=== PATIENT | female | born 1980 | race Caucasian/White ===

== ENCOUNTER → 2023-03-22 09:44 | Outpatient (REF) | payer OTHER, SELFPAY | LOC: PNTC 09:44 | PROVIDERS: ATTENDING PHYSICIAN Obstetrics & Gynecology | DX: O09.529 Supervision of elderly multigravida, unspecified trimester (principal); O99.210 Obesity complicating pregnancy, unspecified trimester; O10.919 Unspecified pre-existing hypertension complicating pregnancy, unspecified trimester; O34.211 Maternal care for low transverse scar from previous cesarean delivery; O43.219 Placenta accreta, unspecified trimester | CPT/HCPCS: 76811; 93976 ==

== ENCOUNTER → 2023-04-16 13:14 | Outpatient (REF) | payer OTHER, SELFPAY | LOC: PNTC 13:14 | PROVIDERS: ATTENDING PHYSICIAN Obstetrics & Gynecology | DX: O99.210 Obesity complicating pregnancy, unspecified trimester (principal); O10.019 Pre-existing essential hypertension complicating pregnancy, unspecified trimester; O43.219 Placenta accreta, unspecified trimester; O34.219 Maternal care for unspecified type scar from previous cesarean delivery | CPT/HCPCS: 76816; 93976 ==

== ENCOUNTER → 2023-05-16 13:26 | Outpatient (REF) | payer OTHER, SELFPAY | LOC: PNTC 13:26 | PROVIDERS: ATTENDING PHYSICIAN Obstetrics & Gynecology | DX: O99.210 Obesity complicating pregnancy, unspecified trimester (principal); O09.529 Supervision of elderly multigravida, unspecified trimester; O13.9 Gestational [pregnancy-induced] hypertension without significant proteinuria, unspecified trimester; O34.219 Maternal care for unspecified type scar from previous cesarean delivery | CPT/HCPCS: 76816; 93976 ==

== ENCOUNTER → 2023-06-11 08:52 | Outpatient (REF) | payer OTHER, SELFPAY | LOC: PNTC 08:52 | PROVIDERS: ATTENDING PHYSICIAN Obstetrics & Gynecology | DX: O99.210 Obesity complicating pregnancy, unspecified trimester (principal); O09.529 Supervision of elderly multigravida, unspecified trimester; O34.219 Maternal care for unspecified type scar from previous cesarean delivery | CPT/HCPCS: 59025; 76816 ==

== ENCOUNTER → 2023-06-18 08:44 | Outpatient (REF) | payer OTHER, SELFPAY | LOC: PNTC 08:44 | PROVIDERS: ATTENDING PHYSICIAN Obstetrics & Gynecology | DX: O99.210 Obesity complicating pregnancy, unspecified trimester (principal); O09.529 Supervision of elderly multigravida, unspecified trimester; O13.9 Gestational [pregnancy-induced] hypertension without significant proteinuria, unspecified trimester; O34.219 Maternal care for unspecified type scar from previous cesarean delivery | CPT/HCPCS: 59025; 76815 ==

== ENCOUNTER → 2023-06-25 08:50 | Outpatient (REF) | payer OTHER, SELFPAY | LOC: PNTC 08:50 | PROVIDERS: ATTENDING PHYSICIAN Obstetrics & Gynecology | DX: O99.210 Obesity complicating pregnancy, unspecified trimester (principal); O09.529 Supervision of elderly multigravida, unspecified trimester; O34.219 Maternal care for unspecified type scar from previous cesarean delivery; O10.019 Pre-existing essential hypertension complicating pregnancy, unspecified trimester | CPT/HCPCS: 59025; 76815 ==

== ENCOUNTER → 2023-07-02 08:57 | Outpatient (REF) | payer OTHER, SELFPAY | LOC: PNTC 08:57 | PROVIDERS: ATTENDING PHYSICIAN Obstetrics & Gynecology | DX: O99.210 Obesity complicating pregnancy, unspecified trimester (principal); O09.529 Supervision of elderly multigravida, unspecified trimester; O13.9 Gestational [pregnancy-induced] hypertension without significant proteinuria, unspecified trimester; O34.219 Maternal care for unspecified type scar from previous cesarean delivery | CPT/HCPCS: 59025; 76815 ==

== ENCOUNTER → 2023-07-09 08:45 | Outpatient (REF) | payer OTHER, SELFPAY | LOC: PNTC 08:45 | PROVIDERS: ATTENDING PHYSICIAN Obstetrics & Gynecology | DX: O99.210 Obesity complicating pregnancy, unspecified trimester (principal); O09.529 Supervision of elderly multigravida, unspecified trimester; O13.9 Gestational [pregnancy-induced] hypertension without significant proteinuria, unspecified trimester; O34.219 Maternal care for unspecified type scar from previous cesarean delivery | CPT/HCPCS: 59025; 76816 ==

== ENCOUNTER → 2023-07-17 15:57 | Outpatient (REF) | payer OTHER, SELFPAY | LOC: PNTC 15:57 | PROVIDERS: ATTENDING PHYSICIAN Obstetrics & Gynecology | DX: O99.210 Obesity complicating pregnancy, unspecified trimester (principal); O09.529 Supervision of elderly multigravida, unspecified trimester; O13.9 Gestational [pregnancy-induced] hypertension without significant proteinuria, unspecified trimester; O34.219 Maternal care for unspecified type scar from previous cesarean delivery | CPT/HCPCS: 59025; 76815 ==

== ENCOUNTER → 2023-07-23 08:57 | Outpatient (REF) | payer OTHER, SELFPAY | LOC: PNTC 08:57 | PROVIDERS: ATTENDING PHYSICIAN Obstetrics & Gynecology | DX: O99.210 Obesity complicating pregnancy, unspecified trimester (principal); O09.519 Supervision of elderly primigravida, unspecified trimester; O34.219 Maternal care for unspecified type scar from previous cesarean delivery; I10 Essential (primary) hypertension | CPT/HCPCS: 59025; 76815 ==

== ENCOUNTER → 2023-07-30 08:56 | Outpatient (REF) | payer OTHER, SELFPAY | LOC: PNTC 08:56 | PROVIDERS: ATTENDING PHYSICIAN Obstetrics & Gynecology | DX: O99.210 Obesity complicating pregnancy, unspecified trimester (principal); O09.521 Supervision of elderly multigravida, first trimester; O34.219 Maternal care for unspecified type scar from previous cesarean delivery; O10.019 Pre-existing essential hypertension complicating pregnancy, unspecified trimester | CPT/HCPCS: 59025; 76815 ==

== ENCOUNTER 2023-08-01 08:01 | Inpatient (IN) | payer OTHER, SELFPAY ==
[2023-08-01] MEDS: LR 1000 IV ×2 (08:00→09:24)
[2023-08-01 08:06] VITALS: BMI 48.3
[2023-08-01 08:38] LABS: Hematocrit 38.5 % (37.0-47.0); Hemoglobin 12.8 g/dL (12.0-16.0); Mean Corp Hgb Conc. 33.2 g/dL (33.0-37.0); Mean Corpuscular Hgb 27.6 pg (27.0-31.0); Mean Corpuscular Volume 83.2 fL (81.0-99.0); Mean Platelet Volume 10.1 fL (7.4-10.4); Platelet Count 285 10^3/uL (130-400); Red Blood Cell Count 4.63 10^6/uL (4.20-5.40); Red Cell Dist. Width 15.8 % (11.5-14.5); White Blood Cell Count 15.5 10^3/uL (4.8-10.8)
[2023-08-01] MEDS: TYLENOL 1000 MG PO (09:24)
[2023-08-01] MEDS: BICITRA 30 ML PO (09:48)
[2023-08-01] MEDS: ANCEF 15 MG IV (09:56)
[2023-08-01] MEDS: ZOFRAN 4 MG IV ×2 (13:06→20:27)
[2023-08-01] MEDS: BENADRYL 25 MG IV (13:07)
[2023-08-01] MEDS: PITOCIN 30 UNITS/NSS 500 ML IV (15:16)
[2023-08-01] MEDS: TORADOL 15 MG IV ×2 (17:08→23:00)
[2023-08-01] MEDS: TRANDATE 100 MG PO (20:34)
[2023-08-02 04:33] LABS: Hematocrit 30.8 % (37.0-47.0); Hemoglobin 10.2 g/dL (12.0-16.0); Mean Corp Hgb Conc. 33.1 g/dL (33.0-37.0); Mean Corpuscular Hgb 27.6 pg (27.0-31.0); Mean Corpuscular Volume 83.2 fL (81.0-99.0); Mean Platelet Volume 10.3 fL (7.4-10.4); Platelet Count 253 10^3/uL (130-400); Red Cell Dist. Width 15.9 % (11.5-14.5); White Blood Cell Count 20.6 10^3/uL (4.8-10.8)
[2023-08-02] MEDS: TORADOL 15 MG IV ×2 (05:10→11:06)
[2023-08-02] MEDS: TRANDATE 100 MG PO ×2 (08:20→20:19)
[2023-08-02] MEDS: PRENATAL PLUS 1 TABLET PO (08:21)
[2023-08-02] MEDS: SENOKOT-S 1 TABLET PO (08:21)
--- NOTE | 2023-08-02 08:22 | W.PN.ANS.POP ---
Anesthesia Post Operative
- Anesthesia Post Op Note
Vital Signs Stable-See Nursing Note: Yes
Airway Patent: Yes
Adequate Pain Control: Yes
Change in Mental Status: No
Current Postoperative Nausea & Vomiting: No
Anesthesia Complications: No
General Anesthetic Recall: No
Unplanned Admission: No
Post Op Hydration Adequate: Yes
[2023-08-02] MEDS: TYLENOL 650 MG PO (20:27)
[2023-08-02] MEDS: MOTRIN 600 MG PO (20:27)
[2023-08-03] MEDS: MOTRIN 600 MG PO ×3 (04:35→16:34)
[2023-08-03] MEDS: TYLENOL 650 MG PO ×3 (04:35→16:34)
[2023-08-03] MEDS: TRANDATE 100 MG PO ×2 (08:59→20:06)
[2023-08-03] MEDS: PRENATAL PLUS 1 TABLET PO (08:59)
[2023-08-03] MEDS: SENOKOT-S 1 TABLET PO (08:59)
[2023-08-03 14:39] LABS: Syphilis/T. pallidum Ab Reflex Negative (Negative)
[2023-08-04] MEDS: MOTRIN 600 MG PO ×3 (00:26→15:27)
[2023-08-04] MEDS: TYLENOL 650 MG PO ×3 (00:26→15:28)
[2023-08-04] MEDS: TRANDATE 100 MG PO (07:54)
[2023-08-04] MEDS: PRENATAL PLUS 1 TABLET PO (07:54)
--- NOTE | 2023-08-04 14:06 | W.DS.TRANS ---
DC Summary - Clinical Research Assistant
-
Discharge Instructions:
Discharge Diagnosis/Procedures delivered by elective repeat csection
Diet Regular
Activity No strenuous activity
Driving Restrictions No driving for 2 weeks
Bathing Restrictions OK to Shower
Instructions:
Stand-Alone Forms:
Changes to Home Medications: No
Discharge Medications:
DC Medications w/original date entered in [employer]
cetirizine 10 mg tablet (Zyrtec) 10 mg PO DAILY PRN allergies 11/28/21
labetalol 100 mg tablet 100 mg PO BID 11/28/21
prenat.vits,jessica,jbj-bhva-ohiiw 1 tab PO DAILY 11/28/21
acetaminophen 325 mg tablet 650 mg (2 x 325 mg) PO Q4HPRN PRN mild pain #0 tabs 08/02/23
ibuprofen 600 mg tablet 600 mg PO Q6HPRN PRN cramps #0 tabs 08/02/23
labetalol 100 mg tablet 100 mg PO BID #0 tabs 08/02/23
Home Medication Changes
Pending Results: No
Total time spent discharging patient (in min): 20
== END 2023-08-04 17:40 | disposition home or self-care (01) | DRG 787 ==
LOC: LDRP 08:01
PROVIDERS: ADMITTING PHYSICIAN Obstetrics & Gynecology; FAMILY PHYSICIAN Internal Medicine
PROC: 10D00Z1 Extraction of Products of Conception, Low, Open Approach (ICD-10-PCS; 2023-08-01)
DX: O34.211 Maternal care for low transverse scar from previous cesarean delivery (principal); O10.92 Unspecified pre-existing hypertension complicating childbirth; N85.8 Other specified noninflammatory disorders of uterus; O69.81X0 Labor and delivery complicated by cord around neck, without compression, not applicable or unspecified; O99.214 Obesity complicating childbirth; E66.01 Morbid (severe) obesity due to excess calories; Z3A.39 39 weeks gestation of pregnancy; Z37.0 Single live birth
CPT/HCPCS: 36415; 85027; 86780; 86850; 86900; 86901; C1765

== ENCOUNTER → 2023-09-09 19:54 | Day surgery (SDC) | payer OTHER, SELFPAY ==
[2023-09-09] VITALS (13 sets, daily range): BP systolic 118–158; BP diastolic 69–83
--- NOTE | 2023-09-09 14:06 | ED.GENMED ---
History of Present Illness
General
Chief Complaint: Post Operative Problem(s)
Source: patient
Exam Limitations: none
Time Seen by Provider: 09/09/23 14:04
Nursing documentation reviewed up to this point in time: agreed with
History of Present Illness
History of Present Illness:
43-year-old female hx of HTN, 6 weeks states after the first week , her vaginal bleeding stopped and then the following week it started up again like irregular period until yesterday when the bleeding became worse and she noted
more clotting and cramps, today the clots are bigger and she called her FILLER IN Dr. Garcia who told her to come here and she will meet her here. Patient denies feeling lightheaded, weak or dizzy. Denies chest pain or SOB. She denies abdominal pain
at this time. She states she took a Motrin 200 mg prior to arrival.
Past History
Past History
ED Past Medical History: HTN
ED Past Surgical History: (6 weeks ago, also 1 prior )
Social History
Tobacco: Non-smoker
Alcohol: None
Personal:
Living: with family
Employment: Employed
Review of Systems
Review of Systems
Allergies reviewed?: Yes
All Other Systems: ROS reviewed and negative except as documented in HPI and ROS
Constitutional: Denies fever or chills
Cardiac: Denies chest pain
ABD/GI: Reports abdominal pain (cramps at times); Denies nausea, vomiting or diarrhea
: Reports bleeding (with clots); Denies dysuria or difficulty voiding
Musculoskeletal: Reports no symptoms
Skin: Reports no symptoms
Phy Exam
Physical Exam
Physical Exam:
GENERAL: No acute distress. A&Ox3.
CONSTITUTIONAL: Afebrile.
EYES: clear, conjunctivae normal
ENMT: moist mucus membranes, Pharynx nl
RESPIRATORY: Regular respirations, nonlabored, lungs clear.
CARDIOVASCULAR: Regular rate and rhythm, no murmurs, no rubs.
GI: Soft, nontender, normal BS
MUSCULOSKELETAL: Moves with ease. Well perfused.
SKIN: Warm, dry, pink, C section incision healing well.
PSYCH: Normal mood and affect. Well kept, interactive and appropriate
NEUROLOGIC: Awake, alert and oriented. No focal neurological deficits
Course
Orders/Labs/Results
Orders:
Orders
09/09/23 14:05
US Pelvis W Transvag Combined Urgent
Comment:
Reason For Exam: heavy bleed w clots 6 wks post c section
09/09/23 14:06
0.9% Sodium Chloride 1000 ml [Nss] 1,000 ml IV BOLUS
09/09/23 14:39
Type+Screen Urgent
Complete Blood Count/With Diff Urgent
Comprehensive Metabolic Panel Urgent
09/09/23 20:17
Fentanyl Citrate/Pf [Sublimaze] 25 mcg IV PACU-Q5MPRN PRN
Fentanyl Citrate/Pf [Sublimaze] 50 mcg IV PACU-Q5MPRN PRN
Meperidine [Demerol] 12.5 mg IV PACU-Q5MPRN PRN
Ondansetron Injectable [Zofran] 4 mg IV PACU-ONCEPRN PRN
Prochlorperazine [Compazine] 5 mg IV PACU-ONCEPRN PRN
Notify MD As Directed
Notify physician if: for SDS patients with known or suspected sleep obstructive sleep apnea, monitor in the
PACU.
Notify MD for any apneic/desaturation episodes
O2 Therapy [RESP] Urgent
Titrate/Wean O2 to maintain O2 sat greater than (%): 92
Special Instructions: -Provide supplemental oxygen to achieve O2 sat of 92% or greater.
-After 15 min, may wean O2 and discontinue if patient is able to maintain O2 sat of 92%
or greater during recovery period.
If patient is a discharge home, without oxygen therapy, notify anestheiologist if
unable to maintain O2 SAT of 92% or greater on room air for MD clearance.
09/09/23 20:30
Normosol (Mult Electrolytes) [Normosol-R] 1,000 ml IV PER PROTOCOL
Abnormal Lab Results
09/09/23
14:39
WBC 13.2 H 10^3/uL
(4.8-10.8)
MCH 26.0 L pg
(27.0-31.0)
MCHC 32.1 L g/dL
(33.0-37.0)
RDW 14.9 H %
(11.5-14.5)
Abs Immat Gran (auto) 0.1 H 10^3/uL
(0-0.05)
Absolute Neuts (auto) 9.7 H 10^3/uL
(1.4-6.5)
Lymphocytes % 18.1 L %
(20.5-51.1)
Creatinine 1.1 H mg/dL
(0.6-1.0)
Glucose 105 H mg/dl
(70-99)
AST 37 H U/L
(14-36)
ALT 36 H U/L
(0-35)
09/09/23 14:39
09/09/23 14:39
Vital Signs
Initial and Last Documented VS:
Initial Vital Signs
Temp Pulse Resp BP Pulse Ox
98.0 F 67 16 158/83 98
09/09/23 13:43 09/09/23 13:43 09/09/23 13:43 09/09/23 13:43 09/09/23 13:43
Last Documented Vital Signs
Temp Pulse Resp BP Pulse Ox
98.0 F 63 20 132/76 97
09/09/23 13:43 09/09/23 19:07 09/09/23 19:07 09/09/23 19:07 09/09/23 19:07
MDM/Problems Addressed
MDM/Problems Addressed:
43-year-old female hx of HTN, 6 weeks states after the first week , her vaginal bleeding stopped and then the following week it started up again like irregular period until yesterday when the bleeding became worse and she noted
more clotting and cramps, today the clots are bigger and she called her FILLER IN Dr. Garcia who told her to come here and she will meet her here. Patient denies feeling lightheaded, weak or dizzy. Denies chest pain or SOB. She denies abdominal pain
at this time. She states she took a Motrin 200 mg prior to arrival.
Afebrile, NAD
4:00 PM:
CBC: WBC 13.2, hemoglobin within normal limits
CMP no clinically significant abnormality
BP 126/76
7:[address] Garcia [address]. She looked at the ultrasound and says there is a piece of clot that she wants to take patient to the OR to remove.
*Critical Care Note
Total Time (30-74mins, 75-104mins- exclusive of procedures): Not Applicable
ED Attending Note
-
Portions of this chart may have been created with voice recognition software.� Occasional wrong word or��sound alike� substitutions may have occurred due to the inherent limitations of voice recognition software.
Discharge Plan
Departure
Patient Disposition: OR
Date of Disposition: 09/09/23
Time of Disposition: 19:07
Presentation/result/management discussed w/ accepting MD/DO: Dr. Garcia
Condition: Good
Discharge Problem:
Abnormal vaginal bleeding
Interventions
Interventions:
*Risk Screen - Suicide Last Done: 09/09/23 16:11
*General Assessment Last Done: 09/09/23 16:11
*Neglect/Abuse Screening Last Done: 09/09/23 16:11
*ED COVID-19 Vaccine History Last Done: 09/09/23 16:11
*Nursing Disposition Last Done: 09/09/23 21:00
ED-Skin Assessment Last Done: 09/09/23 16:11
Discharge Date and Time
Discharge Date/Time: 09/09/23 21:01
[2023-09-09] MEDS: NSS 1000 IV (14:37)
[2023-09-09 14:58] LABS: % Basophils 0.4 % (0-2); % Eosinophils 3.5 % (0-6); % Immature Granulocytes 0.5 % (0-0.5); % Lymphocytes 18.1 % (20.5-51.1); % Monocytes 4.6 % (1.7-9.3); % Neutrophils 72.9 % (42.2-75.2); Absolute Basophils 0.1 10^3/uL (0-0.2); Absolute Eosinophils 0.5 10^3/uL (0-0.7); Absolute Immature Granulocytes 0.1 10^3/uL (0-0.05); Absolute Lymphocytes 2.4 10^3/uL (1.2-3.4); Absolute Monocytes 0.6 10^3/uL (0.1-0.6); Absolute Neutrophils 9.7 10^3/uL (1.4-6.5); Hemoglobin 12.5 g/dL (12.0-16.0); Mean Corp Hgb Conc. 32.1 g/dL (33.0-37.0); Mean Corpuscular Volume 81.3 fL (81.0-99.0); Nucleated Red Blood Cells % 0 %; Platelet Count 394 10^3/uL (130-400); Red Cell Dist. Width 14.9 % (11.5-14.5); White Blood Cell Count 13.2 10^3/uL (4.8-10.8)
[2023-09-09 15:07] LABS: ALT (SGPT) 36 U/L (0-35); AST (SGOT) 37 U/L (14-36); Albumin 4.3 g/dl (3.5-5.0); Alkaline Phosphatase 125 U/L (38-126); Blood Urea Nitrogen 16 mg/dl (7-17); Carbon Dioxide 25 mmol/L (22-30); Chloride 104 mmol/L (98-107); Glucose 105 mg/dl (70-99); Potassium 4.4 mmol/L (3.5-5.1); Sodium 138 mmol/L (135-145); Total Bilirubin 0.5 mg/dl (0.2-1.3); Total Protein 6.9 g/dl (6.3-8.2); eGFR > 60.00
--- NOTE | 2023-09-09 22:03 | W.IMMPOSTOP ---
Addendum entered and electronically signed by Jessica Garcia DO 09/09/23 22:15:
anesthesia: LMA general
Original Note:
Surgical Immed Post Op Note
-
Primary Surgeon: Jessica Garcia DO
Assisting Surgeon: none
Pre-op Diagnosis: abnormal uterine bleeding, thickened endometrial lining 6 wks ; possible retained products of conception
Post-op Diagnosis: same; retained blood clot
Procedure Performed: dilation and evacuation, curettage under ultrasound guidance.
Anesthesia Type: general ET Dr. Stewart
Specimen / Cultures: endometrial aspirate/retained clots
Estimated Blood Loss: 20ml
Complications: none
IV Ancef 2 grams
Operative Findings: Uterus approx 14 wk size, retained clot evacuated. No active bleeding.
Counts correct times 2.
Stable to recovery.
== END ==
LOC: EMR 13:23 → OR 19:54
PROVIDERS: Registered Nurse; ATTENDING PHYSICIAN Obstetrics & Gynecology; EMERGENCY PHYSICIAN Emergency Medicine
DX: O72.2 Delayed and secondary postpartum hemorrhage (principal); R93.89 Abnormal findings on diagnostic imaging of other specified body structures
CPT/HCPCS: 59160; 88305; 76830; 76856; 76942; 80053; 85025; 86850; 86900; 86901; 96360; 99285

== ENCOUNTER → 2024-02-12 10:11 | Outpatient (REF) | payer OTHER, SELFPAY | LOC: HWRAD 10:11 | PROVIDERS: ATTENDING PHYSICIAN Internal Medicine | DX: R05.2 Subacute cough (principal) | CPT/HCPCS: 71046 ==

== ENCOUNTER → 2024-04-02 14:18 | Outpatient (REF) | payer OTHER, SELFPAY | LOC: HWRAD 14:18 | PROVIDERS: ATTENDING PHYSICIAN Internal Medicine | DX: R19.00 Intra-abdominal and pelvic swelling, mass and lump, unspecified site (principal) | CPT/HCPCS: 76705 ==

== ENCOUNTER → 2024-09-30 11:17 | Outpatient (REF) | payer OTHER, SELFPAY | LOC: HWWDC 11:17 | PROVIDERS: ATTENDING PHYSICIAN Internal Medicine | DX: Z12.31 Encounter for screening mammogram for malignant neoplasm of breast (principal) | CPT/HCPCS: 77063; 77067 ==